=== PATIENT | male | born 1980 | race Caucasian/White ===

== ENCOUNTER 2025-05-27 21:57 | Emergency (ER) | payer BC, OTHER ==
[~2025-05-27] VITALS: Ht 180.3 cm; Wt 96.6 kg
[2025-05-27 22:38] LABS: IMMATURE GRANULOCYTE ABSOLUTE 0.04 K/uL (0-1); NUCLEATED RED BLOOD CELLS 0.0 % (0.0-0.19); PLATELET COUNT (AUTO) 239 K/uL (130-400); RED BLOOD CELL COUNT(AUTO) 4.88 MIL/uL (4.50-6.20); RED CELL DISTRIBUTION WIDTH 13.8 % (11.0-15.5); WHITE BLOOD COUNT (AUTO) 10.2 K/uL (4.8-10.8)
[2025-05-27 22:45] LABS: CREATININE 0.7 mg/dL (0.5-1.3); GLOMERULAR FILTR. RATE CALC 118.0 mL/min (>90); GLUCOSE,RANDOM 132.0 mg/dL (70-105); SODIUM SERUM 139.0 mmol/L (136-145); UREA NITROGEN, BLOOD 12.0 mg/dL (7-18)
[2025-05-27 22:53] LABS: RAPID GROUP A STREP negative (NEGATIVE)
[2025-05-27] MEDS: MAGNESIUM 2GM PREMIX 50ML IV ONE (23:02)
[2025-05-27 23:05] LABS: INFLUENZA TYPE A Negative For Type A (NEGATIVE); INFLUENZA TYPE B Negative For Type B (NEGATIVE)
[2025-05-27 23:06] LABS: COVID19 (SARS ANTIGEN RAPID) PRESUMPTIVE NEGATIVE (NEGATIVE)
[2025-05-27] MEDS ORDERED: IOHEXOL-350 75 ML VIAL IV ONE (23:17)
[2025-05-27 23:51] VITALS: PULSE 87; RESP 19
--- NOTE | 2025-05-28 00:18 | HMCIMG ---
EXAM: CTA Chest with and without Intravenous Contrast for PE evaluation CLINICAL HISTORY: r/o pe TECHNIQUE: Axial CTA images of the chest with and without intravenous contrast using a pulmonary embolism protocol. Multiplanar reconstructed images were created and reviewed. CONTRAST: None. was administered without incident. COMPARISON: None provided. FINDINGS: PULMONARY ARTERIES: No evidence of central or segmental pulmonary embolism is seen. AORTA: There is no evidence for aneurysm or dissection of the thoracic aorta. LUNGS: Ground glass consolidation seen within the left upper lobe PLEURAL SPACES: No evidence of pneumothorax. No pleural effusion. HEART: Normal heart size. No significant pericardial effusion. LYMPH NODES: No lymphadenopathy is evident. BONES: No focal osseous abnormality or acute fracture. UPPER ABDOMEN: Images of the upper abdomen are unremarkable. IMPRESSION: Left upper lobe ground glass consolidation. Negative PE study. /[place]
--- NOTE | 2025-05-28 00:27 | HMCIMG ---
EXAM: CR Chest, 1 View. CLINICAL HISTORY: CP/SOB COMPARISON: None provided. FINDINGS: LUNGS: There is no mass, infiltrate, or acute pulmonary abnormality. PLEURAL SPACES: No pleural effusion or pneumothorax. MEDIASTINUM: Cardiac size and mediastinal contours within normal limits. BONES: No aggressive appearing osseous lesion seen. IMPRESSION: No acute cardiopulmonary pathology is evident. /[place]
[2025-05-28] MEDS ORDERED: AMOX1TAB16 PO (00:54)
[2025-05-28] MEDS ORDERED: METH4TAB3 PO (00:54)
--- NOTE | 2025-05-28 00:56 | ERN ---
General Chief Complaint: Shortness of Breath Stated Complaint: SHORTNESS OF BREATH Time Seen by MD: 22:09 Time Seen by Midlevel: 22:09 Source: patient History of Present Illness Initial Comments Patient is a 44-year-old male with a past medical history of asthma presenting to the emergency department for evaluation of shortness of breaths. Patient was seen at a local urgent care/ER where he had a negative workup and was ultimately discharged him referred to in the emergency department to rule out a pulmonary embolism. Patient states symptoms started two days ago and progressively worsened. Denies any fever, chills, or any other symptoms at this time. Allergies: Coded Allergies: No Known Allergies (Unverified Allergy, Unknown, 05/27/25) Past Medical History Past Medical History: No Pertinent History Past Surgical History: None ROS Dictation CONSTITUTIONAL: Negative except for HPI HEAD/FACE: Negative except for HPI EENT: Negative except for HPI RESPIRATORY: Negative except for HPI GASTROINTESTINAL/ABDOMINAL: Negative except for HPI GENITOURINARY: Negative except for HPI MUSCULOSKELETAL: Negative except for HPI INTEGUMENTARY: Negative except for HPI NEUROLOGICAL/PSYCH: Negative except for HPI HEMATOLOGIC/LYMPHATIC: Negative except for HPI All Systems Negative, Except as noted above. 13 point review of systems assessed and all negative except for above. Physical Exam Physical Exam Dictation Vital Signs reviewed General Appearance: Alert, oriented x 3, no acute distress, well developed, nourished. Head and Face: non-traumatic. Eyes: PERRL, pink conjunctivas, eyelid no trauma, anterior chamber with arcus senilis. Ears: Pinnas intact and no signs of trauma or erythema ear canals clear and no discharge TM no erythema Nose: No discharge, no bleeding. Oropharynx: Mouth normal, tongue pink, pharynx clear,no erythema, tonsils no exudates, no abscesses noted, mucous membrane moist Neck: Supple, non-tender, no thyromegaly, no masses, no JVD, no bruits Breast:Deferred Chest:No tenderness, no crepitus, no paradoxical movement, no retractions Lungs:Clear, well-ventilated, symmetric, no rales, wheezing to bilateral lung tovar, no rhonchi, no stridor, Heart: Regular rate, regular rhythm, no murmur, no gallops Vascular: no peripheral edema, Abdomen: Soft, positive bowel sounds, nondistended, no guarding, nontender, no rebound, no masses no hepatomegaly, no splenomegaly, no Abdi's sign, no hernias. Rectal: Deferred Genital: Deferred Neurological: Normal speech, motor function intact, sensory function intact Musculoskeletal: Neck nontender, full range of motion, back nontender, full range of motion, Extremities: nontender, full range of motion Skin: Color pink, dry, no turgor, no rash, no lacerations, no abrasions, no contusions. Lymphatic: Deferred Results Laboratory and Microbiology Lab and Micro Result Laboratory Tests Test 05/27/25 22:25 White Blood Count 10.2 K/uL (4.8-10.8) Red Blood Count 4.88 MIL/uL (4.50-6.20) Hemoglobin 14.4 g/dL (14.0-18.0) Hematocrit 43.4 % (42-54) Mean Corpuscular Volume 88.9 fL (79-99) Mean Corpuscular Hemoglobin 29.5 pg (27.0-33.0) Mean Corpuscular Hemoglobin Concent 33.2 g/dL (32.0-36.0) Red Cell Distribution Width 13.8 % (11.0-15.5) Platelet Count 239 K/uL (130-400) Mean Platelet Volume 8.6 fL (7.5-10.5) Immature Granulocyte % (Auto) 0.4 % (0-1) Neutrophils (%) (Auto) 82.1 % (40.0-77.0) H Lymphocytes (%) (Auto) 9.2 % (21.0-51.0) L Monocytes (%) (Auto) 6.0 % (3.0-13.0) Eosinophils (%) (Auto) 1.9 % (0.0-8.0) Basophils (%) (Auto) 0.4 % (0.0-5.0) Neutrophils # (Auto) 8.4 K/uL (1.8-7.7) H Lymphocytes # (Auto) 0.9 K/uL (1.0-4.8) L Monocytes # (Auto) 0.6 K/uL (0.1-1.0) Eosinophils # (Auto) 0.19 K/uL (0.00-0.70) Basophils # (Auto) 0.04 K/uL (0.00-0.20) Absolute Immature Granulocyte (auto 0.04 K/uL (0-1) Nucleated Red Blood Cells 0.0 % (0.0-0.19) White Cell Morphology Comment See comments Sodium Level 139 mmol/L (136-145) Potassium Level 3.5 mmol/L (3.5-5.1) Chloride Level 102 mmol/L (101-111) Carbon Dioxide Level 23 mmol/L (21-32) Blood Urea Nitrogen 12 mg/dL (7-18) Creatinine 0.7 mg/dL (0.5-1.3) Glomerular Filtration Rate Calc 118 mL/min (>90) Random Glucose 132 mg/dL (70-105) H Total Calcium 9.3 mg/dL (8.5-10.1) Troponin I High Sensitivity 5 ng/L (4-75) B-Type Natriuretic Peptide 19 pg/mL (0-100) Influenza Type A Antigen Negative For Type A Influenza Type B Antigen Negative For Type B SARS-CoV-2 Antigen (Rapid) PRESUMPTIVE NEGATIVE Group A Streptococcus Rapid negative (NEGATIVE) Labs Reviewed?: Yes MDM MDM: Differential diagnosis: Asthma exacerbation, pneumonia, pulmonary embolism There are no social concerns with this patient. Prescription drug management Prescriptions will include: Augmentin, Medrol pack Medical management and examination interpretation discussions were had by me with other qualified healthcare professionals as indicated for the patient's care. ED Course Orders Procedure Category Date Status Time 12 Lead Ekg Tracing- EKG 05/27/25 Logged Technical 22:00 Cbc With Differential LAB 05/27/25 Complete 22:00 Basic Metabolic Panel LAB 05/27/25 Complete 22:00 B-Type Natriuretic LAB 05/27/25 Complete Peptide 22:00 Troponin I High LAB 05/27/25 Complete Sensitivity 22:00 Chest 1vw RAD 05/27/25 Resulted 22:00 Rapid (Group A Strep) LAB 05/27/25 Complete 22:26 Influenza Type A & B, LAB 05/27/25 Complete Rapid 22:26 Covid19 (Sars Antigen LAB 05/27/25 Complete Rapid) 22:26 Ct Chest Pe Protocol CT 05/27/25 Resulted Wwo Cont 22:40 Ipratropium/Albuterol PHA 05/27/25 Complete Neb (Duoneb) 23:00 Methylprednisolone PHA 05/27/25 Complete Succ 125mg (Solu-Medr 23:00 Magnesium 2gm Premix PHA 05/27/25 Complete 50ml (Magnesium 2gm 23:00 Iohexol (Omnipaque) PHA 05/27/25 Complete 23:17 Ceftriaxone 1g Vial PHA 05/28/25 In Process (Rocephine 1g Inj) 01:00 Current Medications Medications (Trade) Dose Ordered Sig/Rupal Route PRN Reason Start Time Stop Time Status Last Admin Dose Admin Albuterol (DUOneb) 1 UDVIAL ONCE ONCE IH 05/27/25 23:00 05/27/25 23:01 DC 05/27/25 23:51 Ceftriaxone Sodium (ROCEphine 1G INJ) 1 gm ONCE ONCE IVPB 05/28/25 01:00 05/28/25 01:01 Iohexol (Omnipaque) 75 ml STK-MED ONCE IV 05/27/25 23:17 05/27/25 23:17 DC Magnesium Sulfate (Magnesium 2gm Premix 50ml) 2 g ONCE ONCE IV 05/27/25 23:00 05/27/25 23:01 DC 05/27/25 23:02 Methylprednisolone Sodium Succinate (Solu-medROL 125MG) 125 mg ONCE ONCE IVP 05/27/25 23:00 05/27/25 23:01 DC 05/27/25 23:02 Vital Signs Date Time Temp Pulse Resp B/P (MAP) Pulse Ox O2 Delivery O2 Flow Rate FiO2 05/27/25 23:51 87 19 05/27/25 22:37 98.8 92 18 133/90 95 Room Air* 0 21 DX & DISP Disposition: Discharge Departure Impression: Primary Impression: Asthma exacerbation Additional Impression: Pneumonia Condition: Stable Scripts Amoxicillin/Potassium Clav (Amox Tr-K Clv 875-125 mg Tab) 875 Mg-125 Mg Tablet 1 EACH PO BID for 10 Days, #20 TAB 0 Refills Prov: CARLO CHARLES 05/28/25 Methylprednisolone (Medrol) 4 Mg Tab.ds.pk 1 TAB PO AD for 6 Days, #21 TAB 0 Refills 6 on day 1 then reduce by one tablet daily until gone Prov: CARLO CHARLES 05/28/25 Referrals: JESUSITA PIERRE MD (PCP) Time of Disposition: 00:54 I have reviewed the case, and I agree with, Diagnosis and Plan I performed the substantive portion of the visit. I have reviewed and personally made and approve the management plan that is documented in the note by myself or the LE. I acknowledge for responsibility for the patient's management plan. CARLO CHARLES May 28, 2025 00:56
[2025-05-28 00:59] VITALS: BP 150/90; PULSE 88; RESP 20; TEMP 98.8; O2SAT 98
--- NOTE | 2025-05-28 05:02 | EKG ---
[facility] Test Date: 2025-05-27 Test Time: 21:54:48 Pat Name: IGOR WATSON Department: ED Room: Gender: M [employer]: [id number] : 1980 Requested By: MARGO DUVALL Order Number: [id number] Reading MD: Elaine Etienne Measurements Intervals [place] Rate: 94 P: 72 ND: 151 QRS: 41 QRSD: 87 T: 60 QT: 359 QTc: 449 Interpretive Statements Sinus rhythm Probable left atrial enlargement No previous ECG available for comparison Electronically Signed On 05-28-2025 16:11:35 CDT by Elaine Etienne Please click the below link to view image of tracing.
== END 2025-05-28 01:06 | disposition home or self-care (01) ==
LOC: EDH 21:57
DX: J45.901 Unspecified asthma with (acute) exacerbation (principal); J18.9 Pneumonia, unspecified organism; Z20.822 Contact with and (suspected) exposure to COVID-19
CPT/HCPCS: 99285; 96365; 71270; 71045; 96375 ×2; 87426; 84484; 80048; 83880; 85025; 87880; 87804 ×2; 36415; 93005; 94640; J2919; J3475; Q9967; J0696